=== PATIENT | female | born 1960 | race Caucasian/White ===

== ENCOUNTER 2018-08-07 22:38 | Emergency (ER) | payer OTHER, SELFPAY ==
[2018-08-07 22:41] VITALS: BP 118/81; PULSE 67; RESP 20; TEMP 36.9; O2SAT 100; BMI 30.4
--- NOTE | 2018-08-07 22:52 | EKG12_ITS ---
Test Reason : FALL Blood Pressure : / mmHG Vent. Rate : 069 BPM Atrial Rate : 069 BPM P-R Int : 194 ms QRS Dur : 080 ms QT Int : 426 ms P-R-T Axes : 060 -18 028 degrees QTc Int : 456 ms Normal sinus rhythm Minimal voltage criteria for LVH, may be normal variant Borderline ECG Confirmed by ARETHA SNYDER, CARLOS ([id number]), film or videotape editor MILAD OLIVEIRA ([id number]) on 08/13/2018 4:24:36 PM Referred By: JOSÉ LUIS Confirmed By:CARLOS CARIAS MD
--- NOTE | 2018-08-07 22:52 | CT_ITS ---
HISTORY: BLACKED OUT AND FELL,HAS LACERATION TO BACK OF HEAD EXAM/TECHNIQUE: CT Spine Cervical W/O Contrast: Axial images obtained, multiplanar reformats provided. COMPARISON: None. FINDINGS: # of images incl. paperwork: 390 No fracture or dislocation of the cervical spine. Alignment anatomic. Multilevel degenerative changes but no evidence of high-grade spinal canal narrowing. No acute findings in the paraspinal soft tissues. Mild scarring lung apices. CT/Spine Cervical without Contras IMPRESSION: No fracture or dislocation of the cervical spine. Individualized dose optimization techniques were used for this CT. at 0004 Reported and signed by: Gonzales Quintero MD Electronically Signed: Gonzales Quintero, at 0:02 EDT Tel , Service support ,
--- NOTE | 2018-08-07 22:52 | CT_ITS ---
STUDY: CT BRAIN WITHOUT CONTRAST REASON FOR EXAM: Female, 58 years old. Fall. RADIATION DOSAGE (If Supplied By Facility): CTDIvol = ( 44.99 ) mGy, DLP = ( 762.36 ) mGycm TECHNIQUE: Transaxial CT imaging of the brain was performed without administration of intravenous contrast material. Individualized dose optimization techniques were used for this CT. COMPARISON: No relevant priors. FINDINGS: Normal soft tissue structures. Normal calvarium. Normal size ventricles and extra-axial spaces for the patient's age. Normal white matter tracts of the cerebral hemispheres. Normal basal ganglia and thalami. Normal brainstem. Normal cerebellum. There is no intracranial hemorrhage. There are no findings of an acute ischemic infarction. Normal visualized paranasal sinuses. CT/Brain/Head without Contrast IMPRESSION: Normal unenhanced CT scan of the brain. Electronically Signed: El Neal MD at 23:44 EDT , Service support ,
[2018-08-07] MEDS: 0.9% Normal Saline 1,000 ML 999 ML IV (22:55)
[2018-08-07] MEDS: Ondansetron 4 MG/2 ML Vial IV (22:55)
--- NOTE | 2018-08-07 22:55 | ED.VISSUMM ---
- ER Visit Summary Date of Service: 08/07/18 Chief Complaint: Syncope History of Present Illness: The patient is a 58 F presening after syncopal episode. Patient states she gave blood this evening. When she returned home she felt lightheaded. She was in her kitchen and passed out. She hit the back of her head. She denies chest pain or shortness of breath. She has nausea and had one episode of vomiting prior to arrival. Her last tetanus is up-to-date. Physical Examination: Vitals are stable. Patient is afebrile. Alert no acute distress. HEENT exam 2.5 cm laceration left posterior scalp Neck is nontender Lungs are clear and equal bilaterally. Heart is regular rate and rhythm. Abdomen is soft nontender nondistended. Back: bilateral lumbar muscle tenderness, no midline tenderness Extremities are unremarkable. Skin is warm and dry. No focal neurologic deficit. Remainder of exam is unremarkable. Emergency Department Course and Treatment: Patient was given IV fluids, Zofran. CBC normal except hemoglobin 11.0. Chemistry unremarkable other than potassium 3.1. Troponin is negative. EKG sinus rate of 69. Lumbar x-ray shows no acute process. CT head and neck show no acute process. Laceration was repaired under sterile conditions. Anesthetized with lidocaine. Irrigated with saline. 2 oyusuf were placed. Patient tolerated this well. On reevaluation, patient is feeling at baseline. Advised wound care instructions. Advised to follow with primary care physician. Advised to return to the ED for worsening complaints. Disposition: Discharge home Impression: Syncopal episode, scalp laceration, laceration repair This note was generated with [employer] dictation software. It may contain incorrect words, spelling, and punctuation that were not noted in review of the chart prior to signing ED Disposition - Plan for ED Patient: Disposition: Home or Assisted Living Instructions: ED Laceration Scalp Stitch Or Stap, ED Syncope Vasovagal Referrals: Gabo Bonner MD [Primary Care Provider] -
[2018-08-07 22:56] VITALS: BP 114/85; PULSE 68; RESP 15; O2SAT 100
--- NOTE | 2018-08-07 22:58 | ED.DCSUM_ITS ---
- ER Visit Summary Date of Service: 08/07/18 Chief Complaint: Syncope History of Present Illness: The patient is a 58 F presening after syncopal episode. Patient states she gave blood this evening. When she returned home she felt lightheaded. She was in her kitchen and passed out. She hit the back of her head. She denies chest pain or shortness of breath. She has nausea and had one episode of vomiting prior to arrival. Her last tetanus is up-to-date. Physical Examination: Vitals are stable. Patient is afebrile. Alert no acute distress. HEENT exam 2.5 cm laceration left posterior scalp Neck is nontender Lungs are clear and equal bilaterally. Heart is regular rate and rhythm. Abdomen is soft nontender nondistended. Back: bilateral lumbar muscle tenderness, no midline tenderness Extremities are unremarkable. Skin is warm and dry. No focal neurologic deficit. Remainder of exam is unremarkable. Emergency Department Course and Treatment: Patient was given IV fluids, Zofran. CBC normal except hemoglobin 11.0. Chemistry unremarkable other than potassium 3.1. Troponin is negative. EKG sinus rate of 69. Lumbar x-ray shows no acute process. CT head and neck show no acute process. Laceration was repaired under sterile conditions. Anesthetized with lidocaine. Irrigated with saline. 2 yousuf were placed. Patient tolerated this well. On reevaluation, patient is feeling at baseline. Advised wound care instructions. Advised to follow with primary care physician. Advised to return to the ED for worsening complaints. Disposition: Discharge home Impression: Syncopal episode, scalp laceration, laceration repair This note was generated with [employer] dictation software. It may contain incorrect words, spelling, and punctuation that were not noted in review of the chart prior to signing ED Disposition - Plan for ED Patient: Disposition: Home or Assisted Living Instructions: ED Laceration Scalp Stitch Or Stap, ED Syncope Vasovagal Referrals: Gabo Bonner MD [Primary Care Provider] -
[2018-08-07] MEDS: Morphine 2 MG/ML Syringe IV (23:02)
[2018-08-07 23:04] LABS: Absolute Lymphocyte Count 2.93 X10^3/ul (0.83-4.51); Absolute Neutrophil Count 3.7 X10^3/uL (2.0-7.7); Basophil# 0.03 X10^3/uL; Basophil% 0.4 % (0-1); Eosinophil# 0.11 X10^3/uL; Eosinophils% 1.5 % (0-5); Hematocrit 34.4 % (37-47); Lymphocyte # 2.93 X10^3/ul (4.0); Lymphocyte % 40.9 % (19-41); Mean Corpuscular Hgb 27.1 pg (27.0-32.0); Mean Corpuscular Volume 84.7 fL (81-99); Mean Platelet Vol. 10.4 fl (6.2-12.0); Monocyte# 0.38 X10^3/uL; Monocyte% 5.3 % (0-10); Neutrophil # 3.69 X10^3/uL (2.7-7.7); Neutrophil % 51.5 % (47-70); POSITIVE COUNT NO; POSITIVE DIFFERENTIAL NO; POSITIVE MORPHOLOGY NO; Platelet Count 222 K/mm3 (150-450); RBC Distribution Width CV 14.2 % (11.6-14.6); RBC Distribution Width SD 44.3 fl (35.1-43.9); Red Blood Count 4.06 M/mm3 (4.2-5.4); White Blood Count 7.2 K/mm3 (4.4-11.0)
[2018-08-07 23:22] LABS: Anion Gap 8 (5-15); BUN 17 mg/dL (7-18); BUN/Creat Ratio 22.1 RATIO (10-20); Calcium,Total 8.5 mg/dL (8.5-10.1); Chloride 105 mmol/L (98-107); Creatinine, Serum 0.77 mg/dL (0.55-1.02); EST Glomerular Filtration Rate 82 mL/min (>60); Est Glom Filt Rate - Afr Amer 99 mL/min (>60); Estimated Creatinine Clearance 69.61 ml/min; Glucose 116 mg/dL (74-106); Potassium 3.1 mmol/L (3.5-5.1); Sodium Level 142 mmol/L (136-145)
--- NOTE | 2018-08-07 23:35 | RAD_ITS ---
HISTORY: patient passed out, now has low back pain EXAM/TECHNIQUE: XR Spine Lumbar 2 or 3 Views: COMPARISON: None. FINDINGS: # of images incl. paperwork: 3 No fracture or dislocation or osseous destruction. Grade 1 degenerative anterolisthesis L4 on L5. Prominent facet degeneration L4-5 and L5-S1. No acute findings in the soft tissues. RAD/Lumbar Spine 2 or 3 Views IMPRESSION: No acute findings. at 2352 Reported and signed by: Gonzales Quintero MD Electronically Signed: Gonzales Quintero, at 23:51 EDT Tel , Service support ,
--- NOTE | 2018-08-08 00:39 | ED.DEP ---
ED Disposition - Plan for ED Patient: Instructions: ED Laceration Scalp Stitch Or Stap, ED Syncope Vasovagal Referrals: Gabo Bonner MD [Primary Care Provider] -
[2018-08-08 01:13] VITALS: BP 104/53; PULSE 76; RESP 16; O2SAT 98
== END 2018-08-08 01:21 | disposition home or self-care (01) ==
LOC: ED 23:25
PROVIDERS: Emergency Provider Emergency Medicine; Family Provider Family Medicine; PCP Family Medicine
DX: R55 Syncope and collapse (principal); S01.01XA Laceration without foreign body of scalp, initial encounter; W18.30XA Fall on same level, unspecified, initial encounter; Y93.89 Activity, other specified; Y92.000 Kitchen of unspecified non-institutional (private) residence as the place of occurrence of the external cause; Y99.8 Other external cause status
CPT/HCPCS: 12001; 70450; 72100; 72125; 80048; 84484; 85025; 93005; 96361; 96374; 96375; 99285; J7030; A4216; J2405

== ENCOUNTER 2021-05-28 12:29 | Outpatient (CLI) | payer OTHER, SELFPAY ==
--- NOTE | 2021-05-28 12:45 | CT_ITS ---
STUDY: CT CHEST WITH CONTRAST REASON FOR EXAM: Female, 60 years old. CHEST PRESSURE-OVER READ ONLY RADIATION DOSAGE (If Supplied By Facility): CTDIvol = ( 46 ) mGy, DLP = ( 679.92 ) mGycm TECHNIQUE: Transaxial imaging was performed following intravenous administration of IV 50mL Isovue-[id number]. Individualized dose optimization techniques were used for this CT. COMPARISON: None. FINDINGS: The lungs are normal. There is no demonstrated pleural abnormality. Normal heart and pericardium. No significant coronary artery calcification is seen. There are multiple small lymph nodes within the mediastinum, which are normal in size and morphology most compatible with reactive lymph hyperplasia. Normal hilar regions. Normal enhanced pulmonary arteries. Minimal atherosclerotic plaque formation of the aortic arch. Normal osseous structures. There is no demonstrated abnormality of the visualized upper abdomen. CT/Limited Chest CT w/CCTA IMPRESSION: Normal enhanced CT Chest examination..[email or web address] , for a description of the calculator. Electronically Signed: Atilio Olivo MD at 14:56 EST ,
[2021-05-28 12:56] VITALS: BP 153/80; PULSE 68; RESP 16; O2SAT 98; BMI 27.8
[2021-05-28 13:35] VITALS: PULSE 74
[2021-05-28] MEDS: Nitroglycerin SL (ED/IMG/CATH) 0.4 MG TABLET SL (13:35)
[2021-05-28 13:47] VITALS: PULSE 78
[2021-05-28] MEDS: Metoprolol Tartrate 5 MG/5 ML Vial IV (13:47)
[2021-05-28 13:52] VITALS: BP 141/76; PULSE 63; RESP 18; O2SAT 96
[2021-05-28 14:01] VITALS: BP 141/81; PULSE 59; RESP 18; O2SAT 100
--- NOTE | 2021-05-28 14:11 | NURSING ---
pt doing well, refused wheel chair or staff walking with her to the entrance, said she will rest if needed. pt stable and alert at time of dc
--- NOTE | 2021-05-28 14:52 | CCTA.WCONT ---
CCTA w/Cont Coronary Arteries Date of Study:: 05/28/21 Chest pain High-resolution computed tomographic imaging of the chest was performed on 05/28/2021 with particular attention paid to the coronary arteries. Images from the examination were analyzed for the presence and extent of coronary artery calcification using the coronary calcification software. The patient was also administered intravenous contrast for imaging of the coronary arteries. The images were reconstructed and displayed in the appropriate formula. Patient tolerated the procedure well. The image quality was good. Coronary calcium score. Left main score 0 Left anterior descending artery score 0 Left circumflex artery score 0 Right coronary artery score 0 Total Agatston score 0 LEFT MAIN CORONARY ARTERY: [Left main coronary artery arose from the left coronary cusp and bifurcates into left anterior descending artery and left circumflex artery. No significant stenosis was noted in this vessel.] LEFT ANTERIOR DESCENDING CORONARY ARTERY: [The left anterior descending artery coursed towards the apex of the left ventricle. No obstructive coronary disease was noted.] LEFT CIRCUMFLEX CORONARY ARTERY: [The left circumflex artery was a dominant vessel with no significant atherosclerotic plaquing noted] RIGHT CORONARY ARTERY: [The right coronary artery was a nondominant vessel with no significant atherosclerotic plaquing noted] THORACIC AORTA: [The thoracic aorta was upper normal in size] CORONARY CALCIUM SCORE: 0 Conclusion computed tomographic angiogram demonstrating no obstructive coronary disease and a calcium score of 0 []
== END 2021-05-28 23:59 | disposition home or self-care (01) ==
PROVIDERS: PCP Student in an Organized Health Care Education/Training Program; Referring Provider Nurse Practitioner Family; Visit Provider Nurse Practitioner Family
DX: R07.89 Other chest pain (principal)
CPT/HCPCS: 75571; 75574; 76380; Q9967; A4216

== ENCOUNTER → 2023-03-20 | Outpatient (CLI) | payer BC, SELFPAY ==
--- NOTE | 2023-03-20 07:30 | MRI_ITS ---
HISTORY: Bilateral hearing loss, left greater than right, tinnitus. ATTN IAC''S TECHNIQUE: Multiplanar and multisequence MR images of the brain and internal auditory canals were obtained before and after the intravenous restriction 13 mL Clariscan. 421 images. COMPARISON: CT 08/07/2018 FINDINGS: BRAIN PARENCHYMA: Very mild foci of increased T2 FLAIR signal in the bilateral white matter. No enhancing lesion in the brain parenchyma. No abnormal focus of restricted diffusion to suggest acute infarct. No acute intracranial hemorrhage identified. INTERNAL AUDITORY CANALS: Unremarkable bilateral 5th, 7th, and 8th cranial nerve complexes. Symmetric internal auditory canals without enhancing mass. No cerebellopontine angle mass identified. CSF SPACES: Cerebral ventricles, cortical sulci, and other extra-axial CSF spaces within normal limits in size for age. No significant midline shift or other mass effect. No extra-axial fluid collection. VASCULAR SYSTEM: Major intracranial flow voids maintained. PARANASAL SINUSES AND MASTOID AIR CELLS: Mild fluid and mucosal thickening of the right maxillary sinus. Metallic artifact from the oral cavity. Trace fluid in the right mastoid air cells. ORBITS: Symmetric contents. MRI/Brain W/WO Contrast IMPRESSION: No evidence for enhancing intracranial mass. Unremarkable internal auditory canals. Very mild chronic white matter changes. Right maxillary sinusitis. Electronically Signed: Maria Guadalupe Hdz MD at 11:04 EST ,
[2023-03-20 08:02] LABS: CREATININE FINGERSTICK < 0.9 mg/dL (0.55-1.02); EGFR FINGERSTICK > 60.0000 mL/min (>60)
== END | disposition home or self-care (01) ==
PROVIDERS: PCP Student in an Organized Health Care Education/Training Program; Referring Provider Otolaryngology; Visit Provider Otolaryngology
DX: H90.3 Sensorineural hearing loss, bilateral (principal)
CPT/HCPCS: 70553; A9575